=== PATIENT | male | born 1995 | race Caucasian/White ===

== ENCOUNTER 2019-02-12 19:33 | Emergency (ER) | payer OTHER ==
[~2019-02-12] VITALS: Ht 182.9 cm; Wt 82.6 kg
[2019-02-12 19:44] VITALS: BP 137/83
[2019-02-12] MEDS ORDERED: HYDROcodone/APAP 5/325 TABLET PO STA (20:19)
[2019-02-12] MEDS ORDERED: HYDROcodone/APAP 5/325 TABLET ONE (20:24)
--- NOTE | 2019-02-12 20:58 | NUR ---
PT REPORTS IMPROVEMENT IN PAIN W MEDICATIONS. DC EDUCATION PROVIDED, PT DEMONSTRATES UNDERSTANDING. PT AMBULATED STEADILY TO DC WITH RN. FRIEND TO TRANSPORT PT HOME.
== END 2019-02-12 21:00 | disposition home or self-care (01) ==
LOC: ED 20:55
DX: S20.212A Contusion of left front wall of thorax, initial encounter (principal); F17.200 Nicotine dependence, unspecified, uncomplicated; W19.XXXA Unspecified fall, initial encounter; Y93.23 Activity, snow (alpine) (downhill) skiing, snowboarding, sledding, tobogganing and snow tubing; Y92.328 Other athletic field as the place of occurrence of the external cause; Y99.8 Other external cause status
CPT/HCPCS: 93005; 99283